=== PATIENT | male | born 1995 | race Asian ===

== ENCOUNTER 2017-06-15 12:55 | Emergency (ER) | payer OTHER ==
[~2017-06-15] VITALS: Ht 188 cm; Wt 117.9 kg
[2017-06-15 13:08] VITALS: TEMP 98.3
[2017-06-15 13:39] LABS: PLATELET COUNT 295 K/uL (142-355)
[2017-06-15 13:48] LABS: POTASSIUM 3.7 mmol/L (3.6-5.2); SODIUM 136 mmol/L (136-145)
[2017-06-15 14:36] VITALS: BP 123/79
== END 2017-06-15 14:37 | disposition home or self-care (01) ==
LOC: ED 12:55
DX: R07.89 Other chest pain (principal)
CPT/HCPCS: 36415; 80053; 80307; 81000; 82550; 82553; 84484; 85027; 93005; 99283

== ENCOUNTER 2017-08-08 13:21 | Outpatient (CLI) | payer OTHER | END 2017-08-08 19:43 | disposition home or self-care (01) | LOC: RAD 13:21 | DX: R10.32 Left lower quadrant pain (principal) ==